=== PATIENT | female | born 1950 | race Caucasian/White ===

== ENCOUNTER 2023-12-01 06:31 | Observation (INO) ==
[~2023-12-01 06:31] MED LIST: HYDROmorphone 1 MG/1 ML SYRINGE IV PRN; Naloxone 0.4 mg VIAL 0.4 mg/ml 1 ml VIAL IV PRN; Ondansetron 4 mg VIAL 2 MG/ML 2 ml VIAL IV PRN; fentaNYL 100 mcg/2 ml 50 MCG/ML VIAL IV PRN
[2023-12-01] MEDS ORDERED: Sterile Water for Inj 10 ML ONE (07:18)
[2023-12-01] MEDS ORDERED: Phenylephrine IV 10 MG/ML 1 ml VIAL ONE (07:18)
[2023-12-01] MEDS ORDERED: Lidocaine 2% PF 5 ML VIAL ONE (07:18)
[2023-12-01] MEDS ORDERED: Midazolam 2 mg/2 ml VIAL 1 mg/ml 2 ml VIAL (2 mg) ONE ×2 (07:18→08:24)
[2023-12-01] MEDS ORDERED: Ondansetron 4 mg VIAL 2 MG/ML 2 ml VIAL ONE (07:18)
[2023-12-01] MEDS ORDERED: fentaNYL 100 mcg/2 ml 50 MCG/ML VIAL ONE (07:18)
[2023-12-01] MEDS ORDERED: Dexamethasone IV 4 MG/ML VIAL 1 ml VIAL ONE ×2 (07:18→07:58)
[2023-12-01] MEDS ORDERED: Sevoflurane BOTTLE ONE (07:18)
[2023-12-01] MEDS ORDERED: ceFAZolin 2 GM in NS PREMIX 2 GM/100 ML BAG IVPB ONE (07:26)
[2023-12-01] MEDS ORDERED: Tranexamic Acid 1 GM/100ML BAG 2,000 MG/200 ML BAG IV ONE (07:26)
[2023-12-01 07:39] LABS: Rapid COVID-19 Molecular Undetected (Undetected)
[2023-12-01] MEDS ORDERED: ROPIVACAINE 5 MG/ML 30 ML BTL (0.5%) ONE ×2 (07:49→08:01)
[2023-12-01] MEDS ORDERED: Lidocaine 1% MPF 5 ML VIAL ONE (08:01)
[2023-12-01] MEDS ORDERED: Glycopyrrolate IV 0.2 MG/ML 1 ML VIAL ONE (09:23)
[2023-12-01] MEDS ORDERED: Bupivacaine-MPF SPINAL 7.5 MG/ML - 2ML AMP ONE (09:23)
[2023-12-01] MEDS ORDERED: Ondansetron ODT 4 mg TAB 4 MG TAB PO PRN (10:05)
[2023-12-01] MEDS ORDERED: Magnesium Hydroxide LIQ 30 ML UDC PO PRN (10:05)
[2023-12-01] MEDS ORDERED: Morphine 2 MG/ML SYRINGE IV PRN (10:05)
[2023-12-01] MEDS ORDERED: Lactulose 30 ml UDC PO PRN (10:05)
[2023-12-01] MEDS ORDERED: Ondansetron 4 mg VIAL 2 MG/ML 2 ml VIAL IV PRN (10:05)
[2023-12-01] MEDS ORDERED: Buffered Lidocaine 1% SYRIN 1 ml INTRADERM ONE (11:36)
[2023-12-01] MEDS ORDERED: Lactated Ringers 1000 ml BAG 1,000 ML IV SCH (12:00)
[2023-12-01] MEDS: Lactated Ringers 1000 ml BAG 1,000 ML IV SCH ×2 (13:26→22:37)
[2023-12-01] MEDS: ceFAZolin 1 GM ADVAN 1 GM in NS 0.9% 50 ML 50 ML IVPB SCH (17:37)
[2023-12-01] MEDS: Magnesium Hydroxide LIQ 30 ML UDC PO SCH (20:21)
[2023-12-02] MEDS: ceFAZolin 1 GM ADVAN 1 GM in NS 0.9% 50 ML 50 ML IVPB SCH ×2 (02:24→09:44)
[2023-12-02 06:33] LABS: Platelet Count 279 10^3/uL (150-450)
[2023-12-02 06:53] LABS: Calcium 8.6 mg/dL (8.6-10.3); Creatinine, Serum 0.75 mg/dL (0.51-0.95); Potassium 4.2 mmol/L (3.5-5.0); eGFR CKD-EPI 85.1 (>60)
[2023-12-02 06:57] LABS: Hematocrit 34.1 % (35-45); Hemoglobin 11.4 g/dL (11.5-14.3); Mean Platelet Volume 7.8 fL (7.5-11.2)
[2023-12-02] MEDS: Magnesium Hydroxide LIQ 30 ML UDC PO SCH (07:57)
[2023-12-02] MEDS ORDERED: Vitamin THERAPEUTIC TAB PO SCH (09:00)
[2023-12-02 10:13] VITALS: BP 107/65
== END 2023-12-02 13:25 | disposition home or self-care (01) ==
LOC: AA 06:31 → INTOOBSV 06:31 → SSU 10:06
PROVIDERS: ADMIT Orthopaedic Surgery Adult Reconstructive Orthopaedic Surgery; ATTEND Orthopaedic Surgery Adult Reconstructive Orthopaedic Surgery